=== PATIENT | female | born 1970 | race Two or more races ===

== ENCOUNTER 2021-03-23 09:51 | Emergency (ER) | payer OTHER ==
[~2021-03-23] VITALS: Ht 152.4 cm; Wt 65.8 kg
[2021-03-23] MEDS ORDERED: INTEGRA PLUS C1 EACH PO (16:26)
[2021-03-23] MEDS ORDERED: PROVERA2.5 MG PO (16:26)
== END 2021-03-23 17:15 ==
LOC: ER 09:51
DX: N93.8 Other specified abnormal uterine and vaginal bleeding (principal); D64.9 Anemia, unspecified

== ENCOUNTER 2021-03-27 13:54 | Emergency (ER) | payer OTHER ==
[~2021-03-27] VITALS: Ht 152.4 cm; Wt 65.8 kg
[~2021-03-27 13:54] MED LIST: INTEGRA PLUS C1 EACH PO; PROVERA2.5 MG PO
== END 2021-03-27 16:38 | disposition left against medical advice (07) ==
LOC: ER 13:54
DX: Z53.21 Procedure and treatment not carried out due to patient leaving prior to being seen by health care provider (principal)

== ENCOUNTER 2021-05-01 10:00 | Inpatient (IN) | payer OTHER ==
[~2021-05-01] VITALS: Ht 152.4 cm; Wt 68.0 kg
== END 2021-05-08 12:59 | disposition home or self-care (01) | DRG 743 ==
LOC: O/R 05-06 06:00 → OB/GYN 05-06 09:36 → SURH 05-06 10:00 → OB/GYN 05-08 12:59
PROVIDERS: ADMIT Obstetrics & Gynecology Gynecology; ATTEND Obstetrics & Gynecology Gynecology
PROC: 0UT70ZZ Resection of Bilateral Fallopian Tubes, Open Approach (ICD-10-PCS; 2021-05-06)
PROC: 0UT90ZZ Resection of Uterus, Open Approach (ICD-10-PCS; principal; 2021-05-06 13:45)
DX: D25.1 Intramural leiomyoma of uterus (principal); Z20.822 Contact with and (suspected) exposure to COVID-19

== ENCOUNTER 2024-01-13 11:30 | Inpatient (IN) | payer OTHER ==
[~2024-01-13] VITALS: Wt 71.2 kg
[2024-01-13 13:30] VITALS: BP 133/85
[2024-01-13 13:31] VITALS: BP 142/85
[2024-01-25] MEDS ORDERED: LIDOCAINE HCL 1%/EPINEPHRINE 20ML VIAL IJ ONE (14:15)
[2024-01-25] MEDS ORDERED: METRONIDAZOLE/SODIUM CHLORIDE 500 MG/100 ML PIGGYBACK IV SCH (14:15)
[2024-01-25] MEDS ORDERED: CEFTRIAXONE SODIUM 2,000 MG VIAL IV SCH (14:15)
[2024-01-25] MEDS ORDERED: BUPIVACAINE HCL 30 ML VIAL IJ ONE (14:15)
[2024-01-25] MEDS ORDERED: OxyCODONE HCL 5 MG TABLET (ROXICODONE) PO PRN (16:00)
[2024-01-25] MEDS ORDERED: DEXTROSE 50 % IN WATER 0.5 G/ML DISP.SYRIN IV PRN (16:00)
[2024-01-25] MEDS ORDERED: ONDANSETRON HCL 2 MG/ML VIAL IV PRN (16:00)
[2024-01-25] MEDS ORDERED: 0.9 % SODIUM CHLORIDE 1,000 ML IV SCH (16:00)
[2024-01-25] MEDS ORDERED: MORPHINE SULFATE 4 MG/ML CARTRIDGE IV PRN (16:00)
[2024-01-25] MEDS ORDERED: POLYETHYLENE GLYCOL 3350 17 GM BLIST.PACK PO SCH (17:00)
[2024-01-25] MEDS ORDERED: HYOSCYAMINE SULFATE 0.125 MG TAB.SUBL SL SCH (17:00)
[2024-01-25] MEDS ORDERED: GABAPENTIN 300 MG CAPSULE PO SCH (17:00)
[2024-01-25] MEDS ORDERED: MORPHINE SULFATE 4 MG/ML VIAL IV ONE ×2 (17:05→17:35)
[2024-01-25 18:30] LABS: HEMATOCRIT 42.9 % (36.0-45.00); HEMOGLOBIN 14.5 g/dL (12.0-15.00); MEAN CELL VOLUME 86.3 fL (80.00-100.00); MEAN CORPUSCULAR HEMOGLOBIN 29.2 pg (27.00-32.0); MEAN CORPUSCULAR HGB CONC 33.8 g/dl (32.0-36.0); PLATELET COUNT 178 K/uL (150-450); RED BLOOD COUNT 4.97 M/uL (4.00-6.00)
[2024-01-25 18:49] LABS: ALBUMIN 3.4 gm/dL (3.4-5.0); CALCIUM 7.9 mg/dL (8.5-10.1); CREATININE SERUM 0.83 mg/dL (0.55-1.02); GFR 71.64; MAGNESIUM 1.7 mg/dL (1.8-2.4); PHOSPHOROUS 2.3 mg/dL (2.5-4.9); POTASSIUM 3.22 mEq/L (3.5-5.1)
[2024-01-25] MEDS ORDERED: ACETAMINOPHEN 500 MG GEL..CAP PO SCH (20:00)
[2024-01-25] MEDS ORDERED: FAMOTIDINE/PF 20 MG/2 ML VIAL IV PUSH SCH (21:00)
[2024-01-25] MEDS ORDERED: CELECOXIB 200 MG CAPSULE PO SCH (21:00)
[2024-01-25 21:38] VITALS: BP 142/85; O2SAT 97
[2024-01-26] VITALS: BP 131/85; O2SAT 99
[2024-01-26 01:45] VITALS: BP 131/85; O2SAT 99
[2024-01-26 07:31] LABS: HEMATOCRIT 41.7 % (36.0-45.00); HEMOGLOBIN 14.7 g/dL (12.0-15.00); MEAN CELL VOLUME 85.2 fL (80.00-100.00); MEAN CORPUSCULAR HEMOGLOBIN 30.1 pg (27.00-32.0); MEAN CORPUSCULAR HGB CONC 35.3 g/dl (32.0-36.0); PLATELET COUNT 190 K/uL (150-450)
[2024-01-26 08:00] VITALS: BP 134/86; O2SAT 91
[2024-01-26 09:04] LABS: ALBUMIN 3.3 gm/dL (3.4-5.0); CALCIUM 8.2 mg/dL (8.5-10.1); CREATININE SERUM 0.74 mg/dL (0.55-1.02); GFR 81.78; MAGNESIUM 1.7 mg/dL (1.8-2.4); PHOSPHOROUS 3.2 mg/dL (2.5-4.9); POTASSIUM 4.36 mEq/L (3.5-5.1)
[2024-01-26] MEDS ORDERED: ENOXAPARIN SODIUM 40 MG/0.4 ML SYRINGE SUBCUTANEO SCH (17:00)
[2024-01-26 18:10] VITALS: BP 135/75; O2SAT 95
[2024-01-27 00:10] VITALS: BP 123/79; O2SAT 100
[2024-01-27 08:00] VITALS: BP 125/81; O2SAT 97
[2024-01-27] MEDS ORDERED: ENOXAPARIN SODIUM 40 MG/0.4 ML SYRINGE SUBCUTANEO SCH (09:00)
[2024-01-27 16:00] VITALS: BP 145/80; O2SAT 100
[2024-01-28 00:23] VITALS: BP 133/73; O2SAT 100
[2024-01-28 07:52] VITALS: BP 133/87; O2SAT 96
[2024-01-28] MEDS ORDERED: HYOSCYAMINE0.125 M1 SL (08:40)
[2024-01-28] MEDS ORDERED: TRAM1TAB98 PO (08:40)
[2024-01-28] MEDS ORDERED: PEPCID AC20 MG PO (08:40)
== END 2024-01-28 10:21 | disposition home or self-care (01) | DRG 330 ==
LOC: O/R 01-25 06:17 → SURH 01-25 07:00 → SURG 01-25 16:49
PROVIDERS: ADMIT Surgery; ATTEND Surgery
PROC: 0DBP4ZZ Excision of Rectum, Percutaneous Endoscopic Approach (ICD-10-PCS; 2024-01-25)
PROC: 07BC4ZZ Excision of Pelvis Lymphatic, Percutaneous Endoscopic Approach (ICD-10-PCS; 2024-01-25)
PROC: 0DQ84ZZ Repair Small Intestine, Percutaneous Endoscopic Approach (ICD-10-PCS; 2024-01-25)
PROC: 0DJD8ZZ Inspection of Lower Intestinal Tract, Via Natural or Artificial Opening Endoscopic (ICD-10-PCS; 2024-01-25)
PROC: 0DTN4ZZ Resection of Sigmoid Colon, Percutaneous Endoscopic Approach (ICD-10-PCS; principal; 2024-01-25 07:00)
DX: D12.7 Benign neoplasm of rectosigmoid junction (principal); K91.71 Accidental puncture and laceration of a digestive system organ or structure during a digestive system procedure; R19.4 Change in bowel habit; N73.6 Female pelvic peritoneal adhesions (postinfective); N99.4 Postprocedural pelvic peritoneal adhesions; R59.0 Localized enlarged lymph nodes

== ENCOUNTER 2024-02-08 00:47 | Emergency (ER) | payer OTHER ==
[~2024-02-08] VITALS: Ht 152.4 cm; Wt 68.9 kg
[~2024-02-08 00:47] MED LIST changes: +HYOSCYAMINE0.125 M1 SL; +PEPCID AC20 MG PO; +TRAM1TAB98 PO
[2024-02-08] MEDS ORDERED: FAMOTIDINE/PF 20 MG/2 ML VIAL IV PUSH STA (02:08)
[2024-02-08] MEDS ORDERED: PROMETHAZINE HCL 50 MG/ML AMPUL IM STA (02:09)
[2024-02-08] MEDS ORDERED: 0.9 % SODIUM CHLORIDE 1,000 ML IV ONE (02:15)
[2024-02-08 03:14] LABS: HEMATOCRIT 41.1 % (36.0-45.00); HEMOGLOBIN 14.4 g/dL (12.0-15.00); MEAN CELL VOLUME 84.2 fL (80.00-100.00); MEAN CORPUSCULAR HEMOGLOBIN 29.5 pg (27.00-32.0); PLATELET COUNT 320 K/uL (150-450); RED BLOOD COUNT 4.88 M/uL (4.00-6.00); RED CELL DISTRIBUTION WIDTH 12.8 % (11.5-14.5)
[2024-02-08 03:22] LABS: INR 1.05; PARTIAL THROMBOPLASTIN TIME 28.5 SECONDS (22.0-34.0); PROTHROMBIN TIME 11.4 SECONDS (9.0-11.5)
[2024-02-08 03:27] LABS: ALBUMIN 3.5 gm/dL (3.4-5.0); BILIRUBIN TOTAL 0.41 mg/dL (0.3-1.2); CALCIUM 8.6 mg/dL (8.5-10.1); CREATININE SERUM 0.78 mg/dL (0.55-1.02); GFR 76.96; GLOBULINA 3.8 G/DL (2.4-3.5); POTASSIUM 3.89 mEq/L (3.5-5.1); TOTAL PROTEIN 7.3 gm/dL (6.4-8.2)
[2024-02-08] MEDS ORDERED: ZOFRAN8 MG PO (07:33)
[2024-02-08] MEDS ORDERED: PEPCID40 MG PO (07:33)
[2024-02-08 07:36] LABS: URINE APPEARANCE Clear; URINE BILIRRUBIN Negative (NEGATIVE); URINE BLOOD Negative; URINE COLOR Yellow; URINE GLUCOSE Negative (NEGATIVE); URINE KETONE Negative (NEGATIVE); URINE LEUKOCYTE Negative; URINE NITRATE Negative; URINE PROTEIN Negative (NEGATIVE); URINE UROBILINOGEN 0.2 E.U./dl
[2024-02-08 07:42] LABS: URINE BACTERIA 45.2 uL (0.0-1933); URINE EPITHELIAL CELLS 22.7 uL (0.0-38.8); URINE RBC 12.8 uL (0.0-20.8); URINE WBC 7.2 uL (0.0-23.2)
== END 2024-02-08 09:27 ==
LOC: ER 00:49
PROVIDERS: General Practice
DX: R10.9 Unspecified abdominal pain (principal); R11.10 Vomiting, unspecified; C18.9 Malignant neoplasm of colon, unspecified